=== PATIENT | female | born 2005 | race Caucasian/White ===

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

== ENCOUNTER 2024-06-13 11:32 | Emergency (ER) | payer OTHER, MEDICAID, SELFPAY ==
[2024-06-13 11:38] VITALS: BP 132/82; PULSE 92; RESP 13; TEMP 36.1; O2SAT 97; BMI 46.7
--- NOTE | 2024-06-13 13:22 | ED_ITS ---
HPI - Wound/Laceration <Maribel Leonard PA-C - Last Filed: 06/13/24 14:31> General Chief Complaint: Wound/Laceration Stated Complaint: abscess poss infection/drainage Time Seen by Provider: 06/13/24 13:20 Mode of arrival: Ambulatory History of Present Illness HPI narrative: Ms. Canela is a pleasant 18-year-old female with a past medical history of anxiety and fatty liver who presents to the emergency department for left upper arm wound x4 days. Patient states she developed a pimple on her left medial upper arm about 4 days ago and she subsequently popped it. The area became very red she went to [facility] ER and they started her on Keflex 4 times a day x7 days and Bactrim 2 times a day x7 days for cellulitis/abscess. Patient states she is on day 4 of antibiotics and the redness has gone down but now it is more painful and draining. She denies fevers, chills, nausea, vomiting. Denies history of IV drug use or any injections into the left arm. Related Data Home Medications Medication Instructions Recorded Confirmed acetaminophen 500 mg tablet 1,000 mg PO Q6H PRN Pain (Scale 08/26/22 08/26/22 Score 1-3) diphenoxylate-atropine 2.5 2.5 tab PO DAILY 08/26/22 08/26/22 mg-0.025 mg tablet (Lomotil) duloxetine 20 mg capsule,delayed 20 mg PO DAILY 08/26/22 08/26/22 release omeprazole 20 mg capsule,delayed 20 mg PO DAILY 08/26/22 08/26/22 release Previous Rx's Medication Instructions Recorded cephalexin 500 mg capsule 500 mg PO BID #14 caps 11/25/22 sulfamethoxazole 800 1 tab PO BID 3 days #6 tabs 06/13/24 mg-trimethoprim 160 mg tablet (Bactrim DS) Allergies Allergy/AdvReac Type Severity Reaction Status Date / Time No Known Drug Allergies Allergy Verified 06/13/24 11:38 Review of Systems <Maribel Leonard PA-C - Last Filed: 06/13/24 14:31> Review of Systems ROS Unobtainable: All systems reviewed & are unremarkable except as noted in HPI and below Patient History <Maribel Leonard PA-C - Last Filed: 06/13/24 14:31> Medical History Obesity, morbid, BMI 50 or higher Tonsillar hypertrophy Chronic tonsillitis CHIKIS (obstructive sleep apnea) Patient denies medical problems Social History household members: family Smoking Status: Never smoker alcohol intake: current Smoking Status: Never smoker alcohol intake frequency: a few times a month Exam <Maribel Leonard PA-C - Last Filed: 06/13/24 14:31> Narrative Exam Narrative: GENERAL: 18 year old patient appears stated age. Obese patient, in no acute distress. HEAD: Atraumatic. Normocephalic. EYES: Extraocular motions intact. No scleral icterus. No injection or drainage. ENT: Nose without bleeding, purulent drainage. NECK: Trachea midline. Cervical ROM intact. CARDIOVASCULAR: Regular rate RESPIRATORY: ?Nonlabored respirations. ?Speaking in clear, full sentences. ? EXTREMITIES: 3 cm area of erythema and induration on anterior,middle left upper arm with central scabbing consistent with abscess. No streaking erythema. Arm neurovascularly intact. NEURO: AOx3. ?Clear speech. ?Moves all 4 extremities appropriately. Initial Vital Signs Initial Vital Signs: Vital Signs Temperature 97.0 F L 06/13/24 11:38 Pulse Rate 92 H 06/13/24 11:38 Respiratory Rate 13 06/13/24 11:38 Blood Pressure 132/82 06/13/24 11:38 Pulse Oximetry 97 06/13/24 11:38 Oxygen Delivery Method Room Air 06/13/24 11:38 <Mohinder Klein DO - Last Filed: 06/13/24 14:57> Initial Vital Signs Initial Vital Signs: Vital Signs Temperature 97.0 F L 06/13/24 11:38 Pulse Rate 92 H 06/13/24 11:38 Respiratory Rate 13 06/13/24 11:38 Blood Pressure 132/82 06/13/24 11:38 Pulse Oximetry 97 06/13/24 11:38 Oxygen Delivery Method Room Air 06/13/24 11:38 Procedures <Maribel Leonard PA-C - Last Filed: 06/13/24 14:31> Abscess I/D I&D #1: Time of procedure: 14:15 Site: upper extremity Side (if applicable): left Local Anesthetic: lidocaine 1% and with epi Amount of anesthesia used (mL): 3 Technique: incised with #11 blade Amount of fluid expressed (mL): 5 Irrigation: Yes Packing used?: none Complications: pain Course <Maribel Leonard PA-C - Last Filed: 06/13/24 14:31> Orders Ordered: ED Orders 06/13/24 13:31 Wound Culture and Gram Stain Stat Discontinued Medications Bacitracin (Bacitracin Oint 0.9 Gm Pckt) 1 applic TOP NOW ONE Stop: 06/13/24 14:25 Last Admin: 06/13/24 14:26 Dose: 1 applic Documented By: BS Ibuprofen (Ibuprofen 400 Mg Tablet) 400 mg PO NOW ONE Stop: 06/13/24 13:32 Last Admin: 06/13/24 13:40 Dose: 400 mg Documented By: BS Lidocaine/Epinephrine (Lidocaine 1% W/Epi 20ml) 4 ml INJ INTRA-OP ONE Stop: 06/13/24 13:32 Last Admin: 06/13/24 13:40 Dose: 4 ml Documented By: BS Vital Signs Vital signs: Vital Signs - 8 hr 06/13/24 11:38 Temperature 97.0 F L Pulse Rate 92 H Respiratory Rate 13 Blood Pressure 132/82 Pulse Oximetry 97 Oxygen Delivery Method Room Air <Mohinder Klein DO - Last Filed: 06/13/24 14:57> Orders Ordered: ED Orders 06/13/24 13:31 Wound Culture and Gram Stain Stat Discontinued Medications Bacitracin (Bacitracin Oint 0.9 Gm Pckt) 1 applic TOP NOW ONE Stop: 06/13/24 14:25 Last Admin: 06/13/24 14:26 Dose: 1 applic Documented By: BS Ibuprofen (Ibuprofen 400 Mg Tablet) 400 mg PO NOW ONE Stop: 06/13/24 13:32 Last Admin: 06/13/24 13:40 Dose: 400 mg Documented By: BS Lidocaine/Epinephrine (Lidocaine 1% W/Epi 20ml) 4 ml INJ INTRA-OP ONE Stop: 06/13/24 13:32 Last Admin: 06/13/24 13:40 Dose: 4 ml Documented By: BS Vital Signs Vital signs: Vital Signs - 8 hr 06/13/24 11:38 Temperature 97.0 F L Pulse Rate 92 H Respiratory Rate 13 Blood Pressure 132/82 Pulse Oximetry 97 Oxygen Delivery Method Room Air [facility] - Wound/Laceration <Maribel Leonard PA-C - Last Filed: 06/13/24 14:31> [facility] Narrative Medical decision making narrative: 18-year-old female with a past medical history of anxiety and fatty liver who presents to the emergency department for left upper arm wound x4 days. On exam patient is in no acute distress, nontoxic appearing, afebrile. She has an abscess on her left upper arm. She is on day 4 of Keflex and Bactrim. Patient had prior skin marker marking borders of abscess, erythema has clearly gone down in size. However abscess will require I&D as it is starting to drain/scab and fluctuant. Patient is agreeable to procedure. We will treat with ibuprofen and anesthetized with lidocaine with epi. I and D performed of left upper arm abscess. Patient tolerated procedure well but did have some discomfort and opted to end procedure prior to complete deloculation. Wound was cleansed and bacitracin ointment and nonadherent dressing applied. I did prescribe the patient an additional 3 days of Bactrim so that she has 10 days total. Discussed wound care with the patient, discussed signs and symptoms to return to the ER for. Advised she follow up with PCP in 2-3 days for wound recheck. Patient verbalized understanding of all information and is stable for discharge. Discharge Plan Departure Patient Disposition: Home Clinical Impression: Cutaneous abscess Qualifiers: Site of cutaneous abscess: extremity Site of cutaneous abscess of extremity: upper extremity Laterality: left Qualified Code(s): L02.414 - Cutaneous abscess of left upper limb Instructions: DI for Skin Abscess Activity Restrictions/Additional Instructions: Today you had an abscess drained on your left upper arm. Please keep the dressing on your arm clean, dry, intact for the next 12 hours. After this time you may remove the dressing and clean the area with soap, pat dry, cover with antibiotic ointment and placed another dressing on top. Keep the abscess covered until it is completely healed. Wash the wound 1-2 times daily with soap such as Hibiclens or antibacterial dial bar soap. Make sure to wash her hands before and after cleaning the abscess. Please complete the full course of Bactrim and Keflex that was prescribed to you from [facility]. I have prescribed you an additional 3 days of Bactrim to take so that you have taken a full 10 days. Return to the ER if you develop fevers, chills, streaking redness upper down the arm, or any other concerns. Please follow up with your primary care doctor within the next 2-3 days for ER follow-up. (If you do not have a PCP you can call [phone]. ?to schedule an appointment with an [facility] Primary Care Provider) IF YOU DEVELOP ANY NEW OR WORSENING SYMPTOMS, RETURN TO THE ER! Please read the attached instructions, they highlight more specific treatments and interventions for you at home. Thank you for letting me participate in your care, Maribel Leonard PA-C Prescriptions: New sulfamethoxazole-trimethoprim [Bactrim DS] 800-160 mg tablet 1 tab PO BID 3 Days Qty: 6 0RF No Action acetaminophen 500 mg Tablet 1,000 mg PO Q6H PRN (Reason: Pain (Scale Score 1-3)) omeprazole 20 mg Capsule,Delayed Release(Dr/Ec) 20 mg PO DAILY duloxetine 20 mg Capsule,Delayed Release(Dr/Ec) 20 mg PO DAILY diphenoxylate-atropine [Lomotil] 2.5-0.025 mg Tablet 2.5 tab PO DAILY cephalexin 500 mg capsule 500 mg PO BID Qty: 14 0RF Referrals: Barbara Collins PA-C [Primary Care Provider] - Stand Alone Forms: Patient Portal/API/Survey ED Sign-out <Mohinder Klein DO - Last Filed: 06/13/24 14:57> Cosign ED Attending Cosignature Attestation: Dr Klein Co-Sign Statement: I was available for consultation during this patient's emergency department visit. This chart is signed by myself for ad ministrative purposes only. I did not have direct contact with this patient during this visit. They were seen independently by the APC.
[2024-06-13] MEDS: LIDOCAINE 1% W/EPI 20ML 4 ML INJ (13:40)
[2024-06-13] MEDS: IBUPROFEN 400 MG TABLET PO (13:40)
[2024-06-13] MEDS: BACITRACIN OINT 0.9 GM PCKT 1 APPLIC TOP (14:26)
== END 2024-06-13 14:40 | disposition home or self-care (01) ==
PROVIDERS: Emergency Provider Physician Assistant; Family Provider Physician Assistant Medical; PCP Physician Assistant Medical
DX: L02.414 Cutaneous abscess of left upper limb (principal)
CPT/HCPCS: 10060; 87070; 87075; 87077; 87147; 87186; 87205; 99283